=== PATIENT | female | born 2005 | race Caucasian/White ===

== ENCOUNTER 2024-05-06 09:14 | Outpatient (CLI) | payer BC, SELFPAY ==
[2024-05-06 15:08] LABS: Chlamydia DNA Amplified* NOT DETECTED (No Detected); GC DNA Amplified* NOT DETECTED (No Detected)
== END 2024-05-06 09:15 | disposition home or self-care (01) ==
LOC: NFLDUCREF 09:14
DX: R10.9 Unspecified abdominal pain (principal)
CPT/HCPCS: 87491; 87591

== ENCOUNTER 2024-05-10 12:01 | Outpatient (CLI) | payer BC, SELFPAY ==
--- NOTE | 2024-05-10 12:15 | CRLHL7_ITS ---
For Patients: As a result of the Century Cures Act, medical imaging exams and procedure reports are released immediately into your electronic medical record. You may view this report before your referring provider. If you have questions, please contact your health care provider. CLINICAL HISTORY: PELVIC PAIN TECHNIQUE: 2D grajeda scale ultrasound. In addition color Doppler and spectral Doppler analysis was performed of the pelvis using a transabdominal and transvaginal approach. FINDINGS: On transvaginal imaging, the myometrium has a normal uniform echotexture. The uterus measures 9.8 x 3.1 x 4.5 cm. The endometrial lining measures 11 mm in thickness. The right ovary measures 3.7 x 2.0 x 2.4 cm in size and the left ovary measures 3.4 x 1.9 x 2.5 cm. The ovaries demonstrate normal arterial and venous blood flow on color Doppler and spectral Doppler analysis. There are no suspicious fluid collections within the cul-de-sac. Trace physiologic free fluid is present. IMPRESSION: No evidence of ovarian torsion or adnexal mass. Dictated by Tiburcio Greene MD @ 05/10/2024 1:48:15 PM (Electronically Signed)
== END 2024-05-10 12:02 | disposition home or self-care (01) ==
LOC: US 12:01
PROVIDERS: Visit Provider Obstetrics & Gynecology
DX: R10.2 Pelvic and perineal pain (principal)
CPT/HCPCS: 76830; 76856; 93976

== ENCOUNTER 2025-05-16 08:39 | Outpatient (CLI) | payer BC, SELFPAY ==
[2025-05-20 09:47] LABS: Pap Test Digital Imaging Done
== END 2025-05-16 08:40 | disposition home or self-care (01) ==
PROVIDERS: Visit Provider Obstetrics & Gynecology
DX: Z12.4 Encounter for screening for malignant neoplasm of cervix (principal); R63.4 Abnormal weight loss; Z68.22 Body mass index [BMI] 22.0-22.9, adult; T14.8XXA Other injury of unspecified body region, initial encounter
CPT/HCPCS: 80048; 84443; 85610; 85730; 87624; 87625; 88141; 88142; 88175